=== PATIENT | male | born 1975 | race Caucasian/White ===

== ENCOUNTER 2019-06-19 04:15 | Emergency (ER) | payer SELFPAY ==
[2019-06-19 04:42] LABS: #Basophils 0.1 thou/uL (0.0-0.2); #Eosinphils 0.1 thou/uL (0.0-0.7); #Lymphocytes 1.7 thou/uL (1.20-3.40); #Monocytes 0.7 thou/uL (0.11-0.59); #Neutrophils 9.2 thou/uL (1.40-6.50); %Basophils 0.6 % (0.0-1.0); %Eosinophils 0.7 % (0.0-10.0); %Lymphocytes 14.1 % (21.0-51.0); %Monocytes 6.2 % (0.0-10.0); %Neutrophils 78.4 % (42.0-75.0); Mean Corpuscular HGB CONC 32.4 g/dL (32.0-36.0); Mean Corpuscular Hemoglobin 29.8 pg (27.0-31.0); Mean Corpuscular Volume 91.7 fL (78.0-98.0); Mean Platelet Volume 7.7 fL (7.4-10.4); Platelet Count 258 thou/uL (130-400); RBC Distribution Width 13.4 % (11.5-14.5); Red Blood Cell (RBC) Count 5.36 mill/uL (4.70-6.10); White Blood Cell (WBC) Count 11.7 thou/uL (4.8-10.8)
[2019-06-19] MEDS ORDERED: Ketorolac Tromethamine 30 MG/ML VIAL ONE (04:42)
[2019-06-19 04:55] LABS: ALT (SGPT) 18 U/L (8-55); AST (SGOT) 14 U/L (5-34); Albumin 4.3 g/dL (3.5-5.0); Alkaline Phosphatase 45 U/L (40-110); Anion Gap 17 mmol/L (10-20); BUN (Urea Nitrogen) 13 mg/dL (8.9-20.6); Bilirubin, Total 0.2 mg/dL (0.2-1.2); CK (CPK) 128 U/L (30-200); Calc. Creatinine Clearance 0 mL/min (70-130); Calcium 9.8 mg/dL (7.8-10.44); Carbon Dioxide 23 mmol/L (22-29); Chloride 104 mmol/L (98-107); Estimated GFR-MDRD 62; Globulin 2.9 g/dL (2.4-3.5); Glucose 123 mg/dL (70-105); Lipase 31 U/L (8-78); Potassium 3.9 mmol/L (3.5-5.1); Protein, Total 7.2 g/dL (6.0-8.3); Sodium 140 mmol/L (136-145)
[2019-06-19] MEDS ORDERED: Mag-Al Plus 1200 MG/1200 MG/120 MG/30 ML UDCUP ONE (05:20)
[2019-06-19] MEDS ORDERED: Lidocaine Viscous Sol 2% 15 ml UD Cup ONE (05:20)
--- NOTE | 2019-06-19 08:03 | RAD ---
PORTABLE CHEST: DATE: 06/19/2018. FINDINGS: An AP portable film at 0439 is compared with a 10/2015 study. The heart is normal in size and the lungs are clear. No acute infiltrate or effusion was seen. Ther e is no vascular congestion or edema. Very minor curvature of the trachea near the thoracic inlet. This is probably just positional, but it might behoove one to feel the thyroid gland to be sure it is not enlarged. IMPRESSION: No acute findings. POS: HOME
--- NOTE | 2019-06-19 08:08 | CT ---
PRELIMINARY REPORT/[facility]/EMERGENCY AFTER HOURS PROCEDURE CT ABDOMEN PELVIS WO CON History: EPIGASTRIC ABD PAIN SINCE 230 AM, APPENDECTOMY >5YRS AGO, Comparison: None available. Procedure: Multiple axial sections were obtained through the abdomen and pelvis without administrati on of intravenous contrast. Coronal and sagittal reconstruction images were obtained as well. Evalu ation for focal parenchymal lesions is limited without intravenous contrast. Motion artifact limits some detail. Findings: Chest base: Mild subpleural nodularity that could represent scarring/post inflammatory change. Abdomen and pelvis: The appendix is absent. No evidence of bowel obstruction. The gallbladder demonstrates nonspecific dilatation. Mildly heterogenous appearance of the gallbladd er that could represent small stones or sludge. No biliary ductal dilatation. Without contrast, no f ocal mass lesion is seen in the spleen, pancreas, adrenal glands or kidneys. No obstructive uropathy . No renal, ureteral or bladder stones seen. Mild thick-walled appearance of the incompletely diste nded bladder. Small lucent focus in the left iliac bone, indeterminate. No acute disease of bone. Degenerative di sease in the spine. Noted small intramuscular lipoma in the left paraspinous muscle. Impression: 1. Nonspecific dilatation of the gallbladder. Possible sludge or stones in the gallbladder. If the re is clinical reason to suspect cholecystitis, ultrasound examination is recommended for further jessica luation. 2. Mild thick-walled appearance of the bladder. This could represent cystitis. Urinalysis is recom mended. 3. Examination limited by motion artifact. ELECTRONICALLY SIGNED BY: Goldie Narayanan MD Jun 19, 2019 6:09:20 AM CERTIFIED PROCEDURAL CODER This report is intended for review by the ordering physician only, in accordance of law. If you recei ve this report in error, please call [facility] at [phone]. FINAL REPORT CT ABDOMEN AND PELVIS WITH CONTRAST: DATE: 06/19/2019. FINDINGS: Spiral CT of the abdomen and pelvis was done without oral or IV contrast for evaluation of pain. The lung bases are clear. The liver, spleen, pancreas, adrenal glands, kidneys, and abdominal aorta were unremarkable in appearance within the limitations of a noncontrast study. The major finding on this study is a very large gallbladder measuring 10 cm in length. There is a question whether there is some density within it or not. I would recommend an ultrasound to rule out gallstones. There is no gross thickening of the campuzano or streaking in the fat around the gallbladder. The bowel shows no distention or wall thickening. The stomach is generous in size and fluid-filled, but the campuzano are not thickened. No free air or free fluid was seen. A large calcification is seen in the left lower quadrant as well as an adjacent smaller one of no concern. CT of the pelvis shows no pelvis masses, fluid collections, or inflammatory changes. The thickness of the urinary bladder wall is borderline. A small bony density at the anterior superior corner of L4 appears to be old. IMPRESSION: Very large gallbladder with questionable density within it. In the appropriate clinical context, the gallbladder ultrasound could be helpful. This report is in agreement with preliminary report by [facility]. POS: HOME
== END 2019-06-19 06:23 | disposition home or self-care (01) ==
LOC: BURERS 04:15
DX: K80.50 Calculus of bile duct without cholangitis or cholecystitis without obstruction (principal); R11.2 Nausea with vomiting, unspecified; E78.5 Hyperlipidemia, unspecified; E78.00 Pure hypercholesterolemia, unspecified; F41.9 Anxiety disorder, unspecified; F31.9 Bipolar disorder, unspecified; G47.00 Insomnia, unspecified; F17.210 Nicotine dependence, cigarettes, uncomplicated
CPT/HCPCS: 71045; 74176; 80053; 82550; 83690; 84443; 84484; 85025; 93005; 96374; J1885

== ENCOUNTER 2020-03-20 08:27 | Emergency (ER) | payer SELFPAY ==
[2020-03-20] MEDS ORDERED: Ketorolac Tromethamine 60 MG/2 ML VIAL ONE (08:50)
[2020-03-20 09:05] LABS: Clarity Clear (Clear); Leukocyte Negative (Negative); Nitrite Negative (Negative); Protein, Urine (Dipstick) Negative (Neg-Trace)
[2020-03-20 09:06] LABS: Bilirubin Negative (Negative); Blood, Urine Negative (Negative); Glucose, Urine (Dipstick) Negative (Negative); Ketone, Urine Negative (Negative); Urobilinogen 0.2 mg/dL (Less than 2)
[2020-03-20] MEDS ORDERED: Morphine 4 MG/ML VIAL ONE (09:35)
[2020-03-20] MEDS ORDERED: Morphine 2 MG/ML SYRINGE ONE (09:35)
--- NOTE | 2020-03-20 18:21 | CT ---
CT ABDOMEN AND PELVIS WITHOUT CONTRAST: 03/20/20 Comparison is made with the prior study dated 06/19/19. The lung bases are clear. The liver, spleen, pancreas, adrenal glands and abdominal aorta showed no acute findings. There has b een a prior cholecystectomy since former scans. Regarding the kidneys, some of the renal pyramids are perhaps slightly denser than the surrounding ti ssue, but definite focal stones are not seen. There is no hydronephrosis. No ureteral calculi were se en. At most, there may be a very minor degree of streaking in the perirenal fat, a little more so brie n before. This is a nonspecific finding, and it can sometimes indicate infection, recent or remote. T wiley, finding is marginal at best. There is a large calcification seen in the left flank at about the iliac crest level that is benign i n appearance and of no concern. The bowel shows no significant dilation or wall thickening. No free a ir or free fluid was seen. CT of the pelvis shows no pelvic masses, fluid collections, or inflammatory changes. 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 IMPRESSION: No definite acute findings. At most, there may be some minor streaking in the fat around the right ki dney which may or may not be of significance. Findings called to Dr. Johnson at 0932 on 03/20/20. POS: HOME
== END 2020-03-20 09:50 | disposition home or self-care (01) ==
LOC: BURERS 08:27
DX: M54.5 Low back pain (principal); E78.5 Hyperlipidemia, unspecified; E78.00 Pure hypercholesterolemia, unspecified; F31.9 Bipolar disorder, unspecified; F41.9 Anxiety disorder, unspecified; F17.210 Nicotine dependence, cigarettes, uncomplicated; G47.00 Insomnia, unspecified
CPT/HCPCS: 74176; 81003; 96372; J1885; J2270

== ENCOUNTER 2020-03-24 15:21 | Emergency (ER) | payer SELFPAY ==
[2020-03-24] MEDS ORDERED: methylPREDNISolone Sod Succ/PF 125 MG/2 ML VIAL ONE (15:45)
== END 2020-03-24 16:05 | disposition home or self-care (01) ==
LOC: BURERS 15:21
DX: S39.012A Strain of muscle, fascia and tendon of lower back, initial encounter (principal); E78.5 Hyperlipidemia, unspecified; E78.00 Pure hypercholesterolemia, unspecified; F31.9 Bipolar disorder, unspecified; F41.9 Anxiety disorder, unspecified; F17.210 Nicotine dependence, cigarettes, uncomplicated; X50.0XXA Overexertion from strenuous movement or load, initial encounter
CPT/HCPCS: 96372; 99283; J2930

== ENCOUNTER 2020-03-28 21:23 | Emergency (ER) | payer SELFPAY ==
[2020-03-28] MEDS ORDERED: Ketorolac Tromethamine 60 MG/2 ML VIAL ONE (22:00)
== END 2020-03-28 22:32 | disposition home or self-care (01) ==
LOC: BURERS 21:23
DX: M54.5 Low back pain (principal); E78.5 Hyperlipidemia, unspecified; E78.00 Pure hypercholesterolemia, unspecified; F31.9 Bipolar disorder, unspecified; F41.9 Anxiety disorder, unspecified; F17.210 Nicotine dependence, cigarettes, uncomplicated; Z71.6 Tobacco abuse counseling
CPT/HCPCS: 96372; 99406; J1885

== ENCOUNTER 2020-07-11 11:45 | Emergency (ER) | payer SELFPAY ==
[2020-07-11 13:15] LABS: #Basophils 0.1 thou/uL (0.0-0.2); #Eosinphils 0.1 thou/uL (0.0-0.7); #Lymphocytes 2.1 thou/uL (1.20-3.40); #Monocytes 0.4 thou/uL (0.11-0.59); #Neutrophils 2.4 thou/uL (1.40-6.50); %Basophils 1.3 % (0.0-1.0); %Eosinophils 2.5 % (0.0-10.0); %Lymphocytes 42.1 % (21.0-51.0); %Monocytes 7.1 % (0.0-10.0); Hemoglobin 16.9 g/dL (14.0-18.0); Mean Corpuscular HGB CONC 31.5 g/dL (32.0-36.0); Mean Corpuscular Hemoglobin 27.8 pg (27.0-31.0); Mean Corpuscular Volume 88.2 fL (78.0-98.0); Mean Platelet Volume 7.8 fL (7.4-10.4); Platelet Count 279 thou/uL (130-400); RBC Distribution Width 14.1 % (11.5-14.5); Red Blood Cell (RBC) Count 6.08 mill/uL (4.70-6.10); White Blood Cell (WBC) Count 5.1 thou/uL (4.8-10.8)
[2020-07-11 13:29] LABS: Albumin 4.5 g/dL (3.5-5.0); Anion Gap 15 mmol/L (10-20); BUN (Urea Nitrogen) 15 mg/dL (8.9-20.6); Bilirubin, Total 0.3 mg/dL (0.2-1.2); Calc. Creatinine Clearance 0 mL/min (70-130); Calcium 9.9 mg/dL (7.8-10.44); Carbon Dioxide 22 mmol/L (22-29); Chloride 107 mmol/L (98-107); Glucose 96 mg/dL (70-105); Potassium 4.2 mmol/L (3.5-5.1); Protein, Total 8.1 g/dL (6.0-8.3); Sodium 140 mmol/L (136-145)
[2020-07-11 13:30] LABS: ALT (SGPT) 19 U/L (8-55); AST (SGOT) 16 U/L (5-34); Alkaline Phosphatase Less than 8 U/L (40-110); Globulin 3.6 g/dL (2.4-3.5)
== END 2020-07-11 14:00 | disposition home or self-care (01) ==
LOC: BURERS 11:45
DX: G89.29 Other chronic pain (principal); M54.5 Low back pain; M79.604 Pain in right leg; R53.1 Weakness; I10 Essential (primary) hypertension; E78.5 Hyperlipidemia, unspecified; E78.00 Pure hypercholesterolemia, unspecified; F17.210 Nicotine dependence, cigarettes, uncomplicated; Z79.899 Other long term (current) drug therapy
CPT/HCPCS: 36415; 80053; 85025; 86140; 99284

== ENCOUNTER 2021-01-16 11:09 | Outpatient (CLI) | payer MEDICAID, OTHER | END 2021-01-16 11:10 | disposition home or self-care (01) | LOC: BURRAD 11:09 | PROVIDERS: ATTEND Family Medicine | DX: M25.511 Pain in right shoulder (principal); M19.011 Primary osteoarthritis, right shoulder ==

== ENCOUNTER 2022-03-17 11:00 | Outpatient (CLI) | payer OTHER | END 2022-03-17 11:01 | disposition home or self-care (01) | LOC: BURRAD 11:00 | PROVIDERS: ATTEND Family Medicine | DX: S67.10XA Crushing injury of unspecified finger(s), initial encounter (principal); S62.655A Nondisplaced fracture of middle phalanx of left ring finger, initial encounter for closed fracture ==